=== PATIENT | female | born 1995 | race American Indian/Alaskan Native ===

== ENCOUNTER 2020-02-27 10:14 | Emergency (ER) | payer BC ==
--- NOTE | 2020-02-27 11:30 | Emergency Department Report ---
HPI - General Chief Complaint: Psych Time Seen by Provider: 02/27/20 11:02 - HPI HPI: This is a 25-year-old -Turk[place] female who was brought into the emergency department by PD for a medical and mental health evaluation. The patient was found by PD in the [facility] covered in mud. Patient says that she has been living out in the [facility] since last Thursday, 3 days ago. When asked why, the patient says that she has been let down by friends and family, is without any support, and says "maybe they have failed tests that I have given them and they have disappointed me." The patient says that she does have a room that she rents at some type of "room share" residence. 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 The patient later says that she decided to stay in the [facility] because the job was too far from home. She says that she was digging a hole in the ground, in which to sleep, to try and stay warm. There was also a van somewhere near the [place] and the street that the patient was trying to stand as well. She denies any medical conditions. She denies any hallucinations, suicidal or homicidal ideations. The patient is oriented to person, place, time and knows both the current president and the president elect. She denies any psychiatric history. ED Past Medical Hx - Medications Home Medications: Home Medications Medication Instructions Recorded Confirmed Last Taken Type Unobtainable 02/28/20 02/28/20 Unknown History ED Review of Systems ROS: Stated complaint: MEDICAL CLEARANCE/FOUND OUTSIDE Other details as noted in HPI Comment: All other systems reviewed and negative Constitutional: denies: chills, fever Eyes: denies: eye pain, vision change ENT: denies: ear pain, throat pain Respiratory: denies: cough, shortness of breath Cardiovascular: denies: chest pain, palpitations Gastrointestinal: denies: abdominal pain, vomiting Musculoskeletal: denies: back pain, arthralgia Skin: denies: rash, lesions Neurological: denies: headache, weakness Psychiatric: denies: auditory hallucinations, visual hallucinations, homicidal thoughts, suicidal thoughts Physical Exam - Physical Exam Physical Exam: GENERAL: The patient is well-developed well-nourished. HENT: Normocephalic. Atraumatic. Patient has moist mucous membranes. EYES: Extraocular motions are intact. NECK: Supple. Trachea is midline. CHEST/LUNGS: Clear to auscultation. There is no respiratory distress noted. HEART/CARDIOVASCULAR: Regular. There is no tachycardia. ABDOMEN: Abdomen is soft, nontender. Patient has normal bowel sounds. There is no abdominal distention. SKIN: Skin is warm and dry. NEURO: The patient is awake, alert, and oriented. The patient is cooperative. Normal speech. MUSCULOSKELETAL: There is no tenderness or deformity. There is no limitation range of motion. ED Course - Reevaluation(s) Reevaluation #1: 02/27/20 19:04 Lab Results 02/27/20 02/27/20 02/27/20 Range/Units 11:36 11:36 11:36 WBC 12.7 H (4.5-11.0) K/mm3 RBC 4.96 (3.65-5.03) M/mm3 Hgb 12.0 (10.1-14.3) gm/dl Hct 37.3 (30.3-42.9) % MCV 75 L (79-97) fl MCH 24 L (28-32) pg MCHC 32 (30-34) % RDW 16.9 H (13.2-15.2) % Plt Count 228 (140-440) K/mm3 Lymph % (Auto) 9.4 L (13.4-35.0) % [place] % (Auto) 5.1 (0.0-7.3) % Eos % (Auto) 0.0 (0.0-4.3) % Baso % (Auto) 0.2 (0.0-1.8) % Lymph # (Auto) 1.2 (1.2-5.4) K/mm3 [place] # (Auto) 0.7 (0.0-0.8) K/mm3 Eos # (Auto) 0.0 (0.0-0.4) K/mm3 Baso # (Auto) 0.0 (0.0-0.1) K/mm3 Seg Neutrophils % 85.3 H (40.0-70.0) % Seg Neutrophils # 10.8 H (1.8-7.7) K/mm3 Sodium 135 L (137-145) mmol/L Potassium 4.6 (3.6-5.0) mmol/L Chloride 99.8 (98-107) mmol/L Carbon Dioxide 24 (22-30) mmol/L Anion Gap 16 mmol/L BUN 14 (7-17) mg/dL Creatinine 0.6 (0.6-1.2) mg/dL Estimated GFR > 60 ml/min BUN/Creatinine Ratio 23 % Glucose 72 (65-100) mg/dL Calcium 9.7 (8.4-10.2) mg/dL Total Bilirubin 1.20 (0.1-1.2) mg/dL AST 410 H (5-40) units/L ALT 102 H (7-56) units/L Alkaline Phosphatase 45 (35-129) units/L Total Protein 7.4 (6.3-8.2) g/dL Albumin 4.2 (3.9-5) g/dL Albumin/Globulin Ratio 1.3 % TSH 0.231 L (0.270-4.200) mlU/mL HCG, Qual (Negative) Urine Color (Yellow) Urine Turbidity (Clear) Urine pH (5.0-7.0) Ur Specific [place] (1.003-1.030) Urine Protein (Negative) mg/dL Urine Glucose (UA) (Negative) mg/dL Urine Ketones (Negative) mg/dL Urine Blood (Negative) Urine Nitrite (Negative) Urine Bilirubin (Negative) Urine Urobilinogen (<2.0) mg/dL Ur Leukocyte Esterase (Negative) Urine WBC (Auto) (0.0-6.0) /HPF Urine RBC (Auto) (0.0-6.0) /HPF U Epithel Cells (Auto) (0-13.0) /HPF Urine Bacteria (Auto) (Negative) /HPF Urine Mucus /HPF Urine Opiates Screen Urine Methadone Screen Ur Barbiturates Screen Ur Phencyclidine Scrn Ur Amphetamines Screen U Benzodiazepines Scrn Urine Cocaine Screen U Marijuana (THC) Screen Drugs of Abuse Note Plasma/Serum Alcohol (0-0.07) % 02/27/20 02/27/20 02/27/20 Range/Units 11:36 11:36 17:17 WBC (4.5-11.0) K/mm3 RBC (3.65-5.03) M/mm3 Hgb (10.1-14.3) gm/dl Hct (30.3-42.9) % MCV (79-97) fl MCH (28-32) pg MCHC (30-34) % RDW (13.2-15.2) % Plt Count (140-440) K/mm3 Lymph % (Auto) (13.4-35.0) % [place] % (Auto) (0.0-7.3) % Eos % (Auto) (0.0-4.3) % Baso % (Auto) (0.0-1.8) % Lymph # (Auto) (1.2-5.4) K/mm3 [place] # (Auto) (0.0-0.8) K/mm3 Eos # (Auto) (0.0-0.4) K/mm3 Baso # (Auto) (0.0-0.1) K/mm3 Seg Neutrophils % (40.0-70.0) % Seg Neutrophils # (1.8-7.7) K/mm3 Sodium (137-145) mmol/L Potassium (3.6-5.0) mmol/L Chloride (98-107) mmol/L Carbon Dioxide (22-30) mmol/L Anion Gap mmol/L BUN (7-17) mg/dL Creatinine (0.6-1.2) mg/dL Estimated GFR ml/min BUN/Creatinine Ratio % Glucose (65-100) mg/dL Calcium (8.4-10.2) mg/dL Total Bilirubin (0.1-1.2) mg/dL AST (5-40) units/L ALT (7-56) units/L Alkaline Phosphatase (35-129) units/L Total Protein (6.3-8.2) g/dL Albumin (3.9-5) g/dL Albumin/Globulin Ratio % TSH (0.270-4.200) mlU/mL HCG, Qual Negative (Negative) Urine Color Yellow (Yellow) Urine Turbidity Clear (Clear) Urine pH 6.0 (5.0-7.0) Ur Specific [place] 1.021 (1.003-1.030) Urine Protein 30 mg/dl (Negative) mg/dL Urine Glucose (UA) Neg (Negative) mg/dL Urine Ketones 20 (Negative) mg/dL Urine Blood Lg (Negative) Urine Nitrite Neg (Negative) Urine Bilirubin Neg (Negative) Urine Urobilinogen < 2.0 (<2.0) mg/dL Ur Leukocyte Esterase Neg (Negative) Urine WBC (Auto) 1.0 (0.0-6.0) /HPF Urine RBC (Auto) 93.0 (0.0-6.0) /HPF U Epithel Cells (Auto) 1.0 (0-13.0) /HPF Urine Bacteria (Auto) 1+ (Negative) /HPF Urine Mucus Few /HPF Urine Opiates Screen Urine Methadone Screen Ur Barbiturates Screen Ur Phencyclidine Scrn Ur Amphetamines Screen U Benzodiazepines Scrn Urine Cocaine Screen U Marijuana (THC) Screen Drugs of Abuse Note Plasma/Serum Alcohol < 0.01 (0-0.07) % 02/27/20 Range/Units 17:17 WBC (4.5-11.0) K/mm3 RBC (3.65-5.03) M/mm3 Hgb (10.1-14.3) gm/dl Hct (30.3-42.9) % MCV (79-97) fl MCH (28-32) pg MCHC (30-34) % RDW (13.2-15.2) % Plt Count (140-440) K/mm3 Lymph % (Auto) (13.4-35.0) % [place] % (Auto) (0.0-7.3) % Eos % (Auto) (0.0-4.3) % Baso % (Auto) (0.0-1.8) % Lymph # (Auto) (1.2-5.4) K/mm3 [place] # (Auto) (0.0-0.8) K/mm3 Eos # (Auto) (0.0-0.4) K/mm3 Baso # (Auto) (0.0-0.1) K/mm3 Seg Neutrophils % (40.0-70.0) % Seg Neutrophils # (1.8-7.7) K/mm3 Sodium (137-145) mmol/L Potassium (3.6-5.0) mmol/L Chloride (98-107) mmol/L Carbon Dioxide (22-30) mmol/L Anion Gap mmol/L BUN (7-17) mg/dL Creatinine (0.6-1.2) mg/dL Estimated GFR ml/min BUN/Creatinine Ratio % Glucose (65-100) mg/dL Calcium (8.4-10.2) mg/dL Total Bilirubin (0.1-1.2) mg/dL AST (5-40) units/L ALT (7-56) units/L Alkaline Phosphatase (35-129) units/L Total Protein (6.3-8.2) g/dL Albumin (3.9-5) g/dL Albumin/Globulin Ratio % TSH (0.270-4.200) mlU/mL HCG, Qual (Negative) Urine Color (Yellow) Urine Turbidity (Clear) Urine pH (5.0-7.0) Ur Specific [place] (1.003-1.030) Urine Protein (Negative) mg/dL Urine Glucose (UA) (Negative) mg/dL Urine Ketones (Negative) mg/dL Urine Blood (Negative) Urine Nitrite (Negative) Urine Bilirubin (Negative) Urine Urobilinogen (<2.0) mg/dL Ur Leukocyte Esterase (Negative) Urine WBC (Auto) (0.0-6.0) /HPF Urine RBC (Auto) (0.0-6.0) /HPF U Epithel Cells (Auto) (0-13.0) /HPF Urine Bacteria (Auto) (Negative) /HPF Urine Mucus /HPF Urine Opiates Screen Presumptive negative Urine Methadone Screen Presumptive negative Ur Barbiturates Screen Presumptive negative Ur Phencyclidine Scrn Presumptive negative Ur Amphetamines Screen Presumptive negative U Benzodiazepines Scrn Presumptive negative Urine Cocaine Screen Presumptive negative U Marijuana (THC) Screen Presumptive positive Drugs of Abuse Note Disclamer Plasma/Serum Alcohol (0-0.07) % ED Medical Decision Making - Lab Data Result diagrams: 02/27/20 11:36 02/27/20 11:36 - Medical Decision Making This patient presents to the emergency department after being found disheveled in the [facility] by PD. Between myself, triage, and the psychiatric broaching machine set up operator, the patient gives multiple reasons as to why she was in the [facility]. At the time of my examination she is awake, alert, oriented, AAO x3. The patient's labs show some transaminitis and urine drug screen is positive for marijuana. The AST is much more elevated than the ALT which is sometimes consistent with history of alcohol use/abuse. The patient does admit that she was a heavy drinker in the past but denies any recent alcohol use. She also denies any abdominal pain at this time. She does not appear jaundiced. The transaminitis is something that the patient can follow-up with outpatient with gastroenterology. The patient should avoid any acetaminophen or alcohol use. Outpatient referrals for gastroenterology will be given. Vital signs have been reassuring throughout her ED course including being afebrile. The patient has been seen by the psychiatric assessment team. They are waiting for the UDS/UA to make any final decisions on the patient's disposition. These results have since come back and we are awaiting reevaluation by the psychiatric assessment team for further disposition. The patient is not suicidal or homicidal and does not have any expressed hallucinations. The patient has exhibited some unusual behavior regarding her choice to stay in the [place] over the weekend. Also, the patient has been giving some conflicting and/or confusing stories about her residence, family life and/or support, current job status, etc. If the decision is made by the psychiatric team that the patient requires inpatient stabilization, I would consider this patient medically cleared. Critical care attestation.: If time is entered above; I have spent that time in minutes in the direct care of this critically ill patient, excluding procedure time. ED Disposition Clinical Impression: Medical clearance for psychiatric admission, Transaminitis Disposition: [id number] TO HOME OR SELFCARE Is pt being admited?: No Condition: Stable Additional Instructions: I have given you a referral for [facility] to follow-up regarding the elevated liver enzymes found on your blood work. Please avoid any acetaminophen/Tylenol use. Please avoid any alcohol use/abuse. Referrals: [facility] [Provider Group] - 3-5 Days PRIMARY CARE, [Primary Care Provider] - 3-5 Days [facility] [Outside] - 3-5 Days
[2020-02-27 12:07] LABS: Basophils % (Auto) 0.2 % (0.0-1.8); Hematocrit 37.3 % (30.3-42.9); Lymphocytes # (Auto) 1.2 K/mm3 (1.2-5.4); Lymphocytes % (Auto) 9.4 % (13.4-35.0); Mean Corpuscular HGB Conc 32 % (30-34); Mean Corpuscular Volume 75 fl (79-97); Monocytes # (Auto) 0.7 K/mm3 (0.0-0.8); Monocytes % (Auto) 5.1 % (0.0-7.3); Platelet Count 228 K/mm3 (140-440); Red Blood Count 4.96 M/mm3 (3.65-5.03); Red Cell Distribution Width 16.9 % (13.2-15.2)
[2020-02-27 12:29] LABS: Alanine Aminotransferase 102 units/L (7-56); Albumin 4.2 g/dL (3.9-5); Blood Urea Nitrogen 14 mg/dL (7-17); Calcium 9.7 mg/dL (8.4-10.2); Hemolysis Index 1
[2020-02-27 12:34] LABS: BUN/Creatinine Ratio 23
[2020-02-27 17:44] LABS: Bacteria,Urine 1+ /HPF (Negative); Bilirubin,Urine NEG (Negative); Blood,Urine LG (Negative); Color,Urine Yellow (Yellow); Mucus,Urine FEW /HPF; Urobilinogen,Urine < 2.0 mg/dL (<2.0)
[2020-02-27 17:48] LABS: Amphetamine Screen,Urine PRESUMPTIVE NEGATIVE; Benzodiazepines Screen,Urine PRESUMPTIVE NEGATIVE; Cannabinoid Screen,Urine PRESUMPTIVE POSITIVE; Cocaine Screen,Urine PRESUMPTIVE NEGATIVE; Methadone Screen,Urine PRESUMPTIVE NEGATIVE; Opiate Screen,Urine PRESUMPTIVE NEGATIVE
--- NOTE | 2020-02-28 08:21 | Consultation ---
History of Present Illness - Reason for Consult Consult date: 02/28/20 Reason for consult: MHE Requesting physician: HALLIE JACOBSON - History of Present Psychiatric Illness Per ED provider: This is a 25-year-old -[place]une[place] female who was brought into the emergency department by PD for a medical and mental health evaluation. The patient was found by PD in the [place] in mud. Patient says that she has been living out in the [place] since last Thursday, 3 days ago. When asked why, the patient says that she has been let down by friends and family, is without any support, and says "maybe they have failed tests that I have given them and they have disappointed me." The patient says that she does have a room that she rents at some type of "room share" residence. 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 The patient later says that she decided to stay in the [place] because the job was too far from home. She says that she was digging a hole in the ground, in which to sleep, to try and stay warm. There was also a van somewhere near the [place] and the street that the patient was trying to stand as well. She denies any medical conditions. She denies any hallucinations, suicidal or homicidal ideations. The patient is oriented to person, place, time and knows both the current president and the president elect. She denies any psychiatric history. PSYCH HPI Patient is a single 25-year-old -[place]uneian female with unspecified past psychiatric history was brought to the ER for mental health evaluation after being found by the police department. Attempt was made to interview patient this morning I introduced myself, currently lives in room patient says she would like to have the lights off, and the left alone that she does not want me to bother her. Patient is not displaying any aggressive or psychotic behavior at this time and has the right decline mental health evaluation. For this consult patient will be signed off and referred to case management. PAST PSYCHIATRIC HISTORY Diagnoses: Unknown Suicide attempts or Self-harm behavior: Unknown Prior psychiatric hospitalizations: Unknown Substance Abuse history: Unknown Previous psychiatric medications tried: Unknown Outpatient treatment: Unknown PAST MEDICAL HISTORY: Unknown Family Psychiatric History: None reported or documented SOCIAL HISTORY Marital Status: Unknown Living Arrangements: Unknown Employment Status: Unknown: Education:UnknownUnknown History of Abuse: Un known Legal History:Unknown REVIEW OF SYSTEMS ROS cannot be reliably obtained from the patient due to her refusal MENTAL STATUS EXAMINATION General Appearance and Behavior: Age appropriate, good hygiene, wearing appropriate clothes, good eye contact, uncooperative with questioning. Cooperation: Withdrawn Psychomotor Behavior: unremarkable and within normal limits Mood: good Affect and affective range: Flat Thought Process: N/A Thought Content: N/A Speech: Normal volume, Regular rate and rhythm Intellectual Functioning: N/A Suicidal Ideation: N/A l Homicidal Ideation: N/A Impulse Control: Impaired Insight and Judgment: Impaired Memory: N/A Attention: Normal, Orientation: Alert Diagnoses: Assessment and Plan - Psychiatric problem (1) Behavior concern in adult Current Visit: Yes Status: Acute Treatment Plan Patient refused to participate initial evaluation, and the time of evaluation patient does not display any psychotic or manic-like behavior. Patient requested to have the lights in the room turned off, eat her food and cover up. Which are reasonable request. MEDICATIONS: Risks, benefits and alternatives of medications discussed with the patient, questions answered and consent obtained from patient. PSYCHOTHERAPY: Supportive psychotherapy provided MEDICAL: Per primary team DELIRIUM PRECAUTIONS: Please re-orient patient frequently, keep lights on during the day, and minimize benzodiazepines and opiates as these medications could worsen patient's confusion. LATHER APPRENTICE: DISPOSITION: Do Not Recommend acute inpatient psychiatric hospitalization at this time. refer to case management LEGAL STATUS: 1013 rescinded FOLLOW-UP: Will sign off Thank you for the consult. Please contact with any questions and/or concerns. Medications and Allergies Allergies Allergy/AdvReac Type Severity Reaction Status Date / Time No Known Allergies Allergy Unverified 02/27/20 14:32 Mental Status Exam - Vital signs Last Vital Signs Temp 98.9 F 02/28/20 02:01 Pulse 96 H 02/28/20 02:01 Resp 18 02/28/20 02:01 BP 99/60 02/28/20 02:01 Pulse Ox 100 02/28/20 02:01 Results Result Diagrams: 02/27/20 11:36 02/27/20 11:36 Abnormal lab results 02/27/20 02/27/20 02/27/20 Range/Units 11:36 11:36 11:36 WBC 12.7 H (4.5-11.0) K/mm3 MCV 75 L (79-97) fl MCH 24 L (28-32) pg RDW 16.9 H (13.2-15.2) % Lymph % (Auto) 9.4 L (13.4-35.0) % Seg Neutrophils % 85.3 H (40.0-70.0) % Seg Neutrophils # 10.8 H (1.8-7.7) K/mm3 Sodium 135 L (137-145) mmol/L AST 410 H (5-40) units/L ALT 102 H (7-56) units/L TSH 0.231 L (0.270-4.200) mlU/mL All other labs normal. Assessment and Plan - Psychiatric problem (1) Behavior concern in adult Current Visit: Yes Status: Acute
[2020-02-28] MEDS ORDERED: ZIPRASIDONE MESYLATE 20 MG VIAL IM ONE (09:50)
[2020-02-28] MEDS ORDERED: LORazepam 2 MG/ML VIAL IM ONE (09:50)
[2020-02-28] MEDS ORDERED: WATER FOR INJ Sterile (PF) 10 ML ONE (09:53)
--- NOTE | 2020-02-29 14:23 | Emergency Department Report ---
Blank Doc - Documentation Documentation: I was asked by nurse MATT Hill to discharge patient. Per nurse, patient was seen and evaluated by psychiatry, who signed off on patient and ordered a case management consult for discharge home. Liz now tells me that patient's sister is here to take her home. In reading the initial physician's note, I see the patient was brought here by PD after being found in the [place], covered in mud. Patient had no SI or HI, however due to her decision to take residence in the [facility], physician ordered a mental health assessment. Patient was seen by psychiatry ADVISORY APPLICATION DEVELOPER. Note states that patient did not want to speak with him, had covers over her head, and asked him to turn the light off. ADVISORY APPLICATION DEVELOPER states that on yesterday when he saw the patient, there were no phone numbers available for patient's family so that he could gain collateral info. From this interaction, it was deemed by the ADVISORY APPLICATION DEVELOPER that patient had no acute psychosis and that the 1013 could be rescinded and that she could be discharged home with family, which is why the case management consult was ordered by him. According to Liz, this morning patient was placed in seclusion room after patient had an inappropriate interaction with the psychiatry ADVISORY APPLICATION DEVELOPER. Following this interaction Liz asked him if he wanted patient placed in seclusion, which he did. So, patient is currently in room 15. I went to talk to her and patient reports that she is having some auditory hallucinations. She states the voices are telling her to go home. I asked patient where her home is, she keeps repeating "where is my home?" Patient appears disorganized. Her sister is here to pick her up currently. Sister has interacted with patient and states that this is not the patient's baseline. The last time she saw her sister was 2 weeks ago when she told her she had to leave her house due to her marijuana use and having other people in her home. Sister does not feel comfortable taking her back to her home in this state. We will not discharge patient at this time. Since patient did not have a thorough psychiatry consult on yesterday, will reorder psych consult so that she can be seen again tomorrow and fully assessed since we now have phone numbers of patients family members.
--- NOTE | 2020-02-29 16:05 | Emergency Department Report ---
Blank Doc - Documentation Documentation: Medical records reviewed, patient discussed with PA and Nursing Staff. Patient presents with acute onset psychosis, reportedly was in the [place] disorganized, dishevelled and trying to elope from the ED. WBC is elevated. No CT, UDS is negative Family reports this is not her baseline and no psych history Impression: Acute psychosis Vs Acute delirium due to unknown etiology Recommendation: Please refer to inpatient psychiatry once medically cleared.
[2020-02-29 22:39] LABS: Hematocrit 32.1 % (30.3-42.9); Hemoglobin 10.6 gm/dl (10.1-14.3); Mean Corpuscular HGB Conc 33 % (30-34); Mean Corpuscular Volume 74 fl (79-97); Platelet Count 195 K/mm3 (140-440); Red Blood Count 4.32 M/mm3 (3.65-5.03); Red Cell Distribution Width 16.9 % (13.2-15.2)
[2020-03-01 09:01] LABS: INR 1.01 (0.87-1.13)
[2020-03-01 09:02] LABS: Partial Thromboplastin Time 29.2 Sec. (24.2-36.6)
[2020-03-01 09:16] LABS: Alanine Aminotransferase 69 units/L (7-56); Albumin 4.2 g/dL (3.9-5); Blood Urea Nitrogen 9 mg/dL (7-17); Calcium 9.8 mg/dL (8.4-10.2); Hemolysis Index 1
[2020-03-01 09:26] LABS: BUN/Creatinine Ratio 13
--- NOTE | 2020-03-01 09:52 | Cat Scan Report ---
CT HEAD WITHOUT CONTRAST INDICATION / CLINICAL INFORMATION: change in men nikky status. TECHNIQUE: All CT scans at this location are performed using CT dose reduction for ALARA by means of automated e xposure control. COMPARISON: None available. FINDINGS: HEMORRHAGE: No evidence of intracranial hemorrhage or extra-axial fluid collection. EXTRA-AXIAL SPACES: Cortical sulci, sylvian fissures and basilar cisterns have an unremarkable appear ance. VENTRICULAR SYSTEM: The third and lateral ventricles are of normal size and configuration. CEREBRAL PARENCHYMA: No areas of abnormal brain parenchymal attenuation are identified. There is no i ndication of recent infarction. MIDLINE SHIFT OR HERNIATION: There is no mass effect. CEREBELLUM / BRAINSTEM: Brainstem and cerebellum have an unremarkable appearance. MIDLINE STRUCTURES:No abnormalities of the pituitary gland or pineal region are identified. INTRACRANIAL VESSELS:No abnormalities are identified on this noncontrast head CT. ORBITS: visualized portions of the orbits have an unremarkable appearance. SOFT TISSUES of HEAD: No significant abnormality. CALVARIUM: Evaluation of bone windows reveals no abnormalities. PARANASAL SINUSES / MASTOID AIR CELLS: Visualized portions of the paranasal sinuses are free from inf lammatory mucosal disease. Mastoid air cells are normally pneumatized. IMPRESSION: 1. Normal head CT without contrast. Signer Name: Gil Abraham MD Signed: 03/01/2020 9:48 AM Workstation Name: [id number]
[2020-03-01] MEDS ORDERED: LACTATED RINGERS 2,000 ML IV ONE (10:00)
--- NOTE | 2020-03-01 10:11 | Event Note ---
Date: 03/01/20 The patient was evaluated in the emergency department for symptoms described in the history of present illness. He/she was evaluated in the context of the global COVID-19 pandemic, which necessitated consideration that the patient might be at risk for infection with the virus that causes COVID-19. Institutional protocols and algorithms that pertain to the evaluation of patients at risk for COVID-19 are in a state of rapid change based on information released by regulatory bodies including the CDC and federal and state organizations. These policies and algorithms were followed during the patient's care in the emergency department. Please note that these policies, procedures and recommendations changed on a rapid basis. Please note that this patient was not signed out to myself. I was not aware of this patient's care until today, or nursing team brought this patient to my attention. During the history and physical, I am chaperoned by nurse ADRIANA RDZ This is a patient who came in a few days ago with psychosis and disorganized behavior. She was cleared medically by her initial physician, Dr. Rasheed. She was seen by psychiatry team, who made initial recommendations, and then a repeat psychiatric consultation was requested by my colleague, Dr. Junior. Psychiatry then reevaluated the patient, and made further recommendations, which were not communicated to the medical team as far as I am aware. They recommended a CT scan of the brain. I reviewed the patient's chart, and laboratory studies. I went back to reevaluate the patient. The patient is currently alert, oriented, and clinically sober at this time. She denies physical pain at this time. She is not homicidal, not suicidal, and in my opinion, demonstrates a lucid thought process. The patient tells me that she recently moved here from [place]. 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 She states that a few days ago, she went to a alliance party with individuals that she notices socially, and felt uncomfortable. She states that she then escaped this event by going to the [facility], where she felt comfortable. She also endorses that she was consuming recreational marijuana. The patient states that while in [place], cannabis consumption was illegal. She knows that marijuana consumption is not legal here in the state of [place]. She indicates that she is going to discontinue marijuana consumption. On her exam, patient alert and oriented to name, place, location, month. She is able to add 4+4, subtract 100-7, multiply 5 by 5, and remember 3 out of 3 words at 0 minutes and 5 minutes. She exhibits decision-making capacity in my opinion. I did recommend IV fluids for her elevated CK, and the patient asked if she could drink water instead as an alternative as she prefers not to have an IV placed. The patient states that she is reliable to drink water. Her physical exam is benign and unremarkable, with soft muscular compartments. Transaminitis improving, she is not clinically encephalopathic at this time, and initial transaminitis is likely secondary to presumably elevated CK. She has normal renal function at this time. In addition, liver function tests are improving. CT scan of the brain is negative for acute findings. EKG is unremarkable. In my opinion, patient does not have an emergent medical condition at this time which would require inpatient hospitalization or further management. From a medical management standpoint, it is my opinion that at this patient is suitable for discharge with copious oral hydration, instructions to follow-up with an outpatient primary care doctor for repeat CK/liver function tests in 5 to 7 days. Patient is also counseled to abstain from cannabis consumption. In addition, at this point time, it is my opinion that the patient does not have an immediate medical contraindication that would preclude psychiatric evaluation, consultation, and if the psychiatry team ultimately deems the patient still requires 1013/involuntary confinement/involuntary hold, placement to psychiatric facility. However, I am requesting a repeat psychiatric evaluation to determine if patient still requires involuntary psychiatric placement at this time Suspect that the patient has a temporary drug-induced psychosis, now resolved. Suspect that elevated CK secondary to cannabis consumption. Suspect that transaminitis secondary to elevated CK. Noncontrast CT scan of the brain is negative for acute findings. EKG: Sinus rhythm, 72 bpm, normal axis, normal intervals, high left ventricular voltage. EKG is not a STEMI. Physical exam: Head, normocephalic atraumatic Vital signs reviewed and appreciated. Ocular exam: EOM intact, no obvious droop or ptosis. Neck: Supple, with no meningeal signs. No stridor. Trachea is midline. S1, S2, regular rate and rhythm. Breath sounds clear to auscultation bilaterally. Abdomen soft and benign, without rebound, guarding or peritoneal signs. There is no midline spinal tenderness or step-offs. There is no back tenderness. 2+ pulses noted in the bilateral upper and lower extremities. There is no palpable cord. negative Homans sign. Muscular compartments are soft. The pelvis is stable. No facial droop. Tongue midline. Extraocular movements intact bilaterally. Facial sensation intact to light touch in V1, V2, V3 distribution bilaterally. 5 and a 5 strength in 4 extremities. Sensation intact to light touch in 4 extr emities. Lab Results 02/27/20 02/27/20 02/27/20 Range/Units 11:36 11:36 11:36 WBC 12.7 H (4.5-11.0) K/mm3 RBC 4.96 (3.65-5.03) M/mm3 Hgb 12.0 (10.1-14.3) gm/dl Hct 37.3 (30.3-42.9) % MCV 75 L (79-97) fl MCH 24 L (28-32) pg MCHC 32 (30-34) % RDW 16.9 H (13.2-15.2) % Plt Count 228 (140-440) K/mm3 Lymph % (Auto) 9.4 L (13.4-35.0) % Mcmullen % (Auto) 5.1 (0.0-7.3) % Eos % (Auto) 0.0 (0.0-4.3) % Baso % (Auto) 0.2 (0.0-1.8) % Lymph # (Auto) 1.2 (1.2-5.4) K/mm3 Mcmullen # (Auto) 0.7 (0.0-0.8) K/mm3 Eos # (Auto) 0.0 (0.0-0.4) K/mm3 Baso # (Auto) 0.0 (0.0-0.1) K/mm3 Seg Neutrophils % 85.3 H (40.0-70.0) % Seg Neutrophils # 10.8 H (1.8-7.7) K/mm3 PT (12.2-14.9) Sec. INR (0.87-1.13) APTT (24.2-36.6) Sec. Sodium 135 L (137-145) mmol/L Potassium 4.6 (3.6-5.0) mmol/L Chloride 99.8 (98-107) mmol/L Carbon Dioxide 24 (22-30) mmol/L Anion Gap 16 mmol/L BUN 14 (7-17) mg/dL Creatinine 0.6 (0.6-1.2) mg/dL Estimated GFR > 60 ml/min BUN/Creatinine Ratio 23 % Glucose 72 (65-100) mg/dL Calcium 9.7 (8.4-10.2) mg/dL Magnesium (1.7-2.3) mg/dL Total Bilirubin 1.20 (0.1-1.2) mg/dL AST 410 H (5-40) units/L ALT 102 H (7-56) units/L Alkaline Phosphatase 45 (35-129) units/L Total Creatine Kinase (30-135) units/L Total Protein 7.4 (6.3-8.2) g/dL Albumin 4.2 (3.9-5) g/dL Albumin/Globulin Ratio 1.3 % TSH 0.231 L (0.270-4.200) mlU/mL HCG, Qual (Negative) Urine Color (Yellow) Urine Turbidity (Clear) Urine pH (5.0-7.0) Ur Specific [place] (1.003-1.030) Urine Protein (Negative) mg/dL Urine Glucose (UA) (Negative) mg/dL Urine Ketones (Negative) mg/dL Urine Blood (Negative) Urine Nitrite (Negative) Urine Bilirubin (Negative) Urine Urobilinogen (<2.0) mg/dL Ur Leukocyte Esterase (Negative) Urine WBC (Auto) (0.0-6.0) /HPF Urine RBC (Auto) (0.0-6.0) /HPF U Epithel Cells (Auto) (0-13.0) /HPF Urine Bacteria (Auto) (Negative) /HPF Urine Mucus /HPF Salicylates (2.8-20.0) mg/dL Urine Opiates Screen Urine Methadone Screen Acetaminophen (10.0-30.0) ug/mL Ur Barbiturates Screen Ur Phencyclidine Scrn Ur Amphetamines Screen U Benzodiazepines Scrn Urine Cocaine Screen U Marijuana (THC) Screen Drugs of Abuse Note Plasma/Serum Alcohol (0-0.07) % 02/27/20 02/27/20 02/27/20 Range/Units 11:36 11:36 17:17 WBC (4.5-11.0) K/mm3 RBC (3.65-5.03) M/mm3 Hgb (10.1-14.3) gm/dl Hct (30.3-42.9) % MCV (79-97) fl MCH (28-32) pg MCHC (30-34) % RDW (13.2-15.2) % Plt Count (140-440) K/mm3 Lymph % (Auto) (13.4-35.0) % Mcmullen % (Auto) (0.0-7.3) % Eos % (Auto) (0.0-4.3) % Baso % (Auto) (0.0-1.8) % Lymph # (Auto) (1.2-5.4) K/mm3 Mcmullen # (Auto) (0.0-0.8) K/mm3 Eos # (Auto) (0.0-0.4) K/mm3 Baso # (Auto) (0.0-0.1) K/mm3 Seg Neutrophils % (40.0-70.0) % Seg Neutrophils # (1.8-7.7) K/mm3 PT (12.2-14.9) Sec. INR (0.87-1.13) APTT (24.2-36.6) Sec. Sodium (137-145) mmol/L Potassium (3.6-5.0) mmol/L Chloride (98-107) mmol/L Carbon Dioxide (22-30) mmol/L Anion Gap mmol/L BUN (7-17) mg/dL Creatinine (0.6-1.2) mg/dL Estimated GFR ml/min BUN/Creatinine Ratio % Glucose (65-100) mg/dL Calcium (8.4-10.2) mg/dL Magnesium (1.7-2.3) mg/dL Total Bilirubin (0.1-1.2) mg/dL AST (5-40) units/L ALT (7-56) units/L Alkaline Phosphatase (35-129) units/L Total Creatine Kinase (30-135) units/L Total Protein (6.3-8.2) g/dL Albumin (3.9-5) g/dL Albumin/Globulin Ratio % TSH (0.270-4.200) mlU/mL HCG, Qual Negative (Negative) Urine Color Yellow (Yellow) Urine Turbidity Clear (Clear) Urine pH 6.0 (5.0-7.0) Ur Specific [place] 1.021 (1.003-1.030) Urine Protein 30 mg/dl (Negative) mg/dL Urine Glucose (UA) Neg (Negative) mg/dL Urine Ketones 20 (Negative) mg/dL Urine Blood Lg (Negative) Urine Nitrite Neg (Negative) Urine Bilirubin Neg (Negative) Urine Urobilinogen < 2.0 (<2.0) mg/dL Ur Leukocyte Esterase Neg (Negative) Urine WBC (Auto) 1.0 (0.0-6.0) /HPF Urine RBC (Auto) 93.0 (0.0-6.0) /HPF U Epithel Cells (Auto) 1.0 (0-13.0) /HPF Urine Bacteria (Auto) 1+ (Negative) /HPF Urine Mucus Few /HPF Salicylates (2.8-20.0) mg/dL Urine Opiates Screen Urine Methadone Screen Acetaminophen (10.0-30.0) ug/mL Ur Barbiturates Screen Ur Phencyclidine Scrn Ur Amphetamines Screen U Benzodiazepines Scrn Urine Cocaine Screen U Marijuana (THC) Screen Drugs of Abuse Note Plasma/Serum Alcohol < 0.01 (0-0.07) % 02/27/20 02/29/20 03/01/20 Range/Units 17:17 21:49 08:33 WBC 5.5 (4.5-11.0) K/mm3 RBC 4.32 (3.65-5.03) M/mm3 Hgb 10.6 (10.1-14.3) gm/dl Hct 32.1 (30.3-42.9) % MCV 74 L (79-97) fl MCH 25 L (28-32) pg MCHC 33 (30-34) % RDW 16.9 H (13.2-15.2) % Plt Count 195 (140-440) K/mm3 Lymph % (Auto) (13.4-35.0) % Mcmullen % (Auto) (0.0-7.3) % Eos % (Auto) (0.0-4.3) % Baso % (Auto) (0.0-1.8) % Lymph # (Auto) (1.2-5.4) K/mm3 [place] # (Auto) (0.0-0.8) K/mm3 Eos # (Auto) (0.0-0.4) K/mm3 Baso # (Auto) (0.0-0.1) K/mm3 Seg Neutrophils % (40.0-70.0) % Seg Neutrophils # (1.8-7.7) K/mm3 PT (12.2-14.9) Sec. INR (0.87-1.13) APTT (24.2-36.6) Sec. Sodium 141 (137-145) mmol/L Potassium 3.5 L D (3.6-5.0) mmol/L Chloride 104.7 (98-107) mmol/L Carbon Dioxide 28 (22-30) mmol/L Anion Gap 12 mmol/L BUN 9 (7-17) mg/dL Creatinine 0.7 (0.6-1.2) mg/dL Estimated GFR > 60 ml/min BUN/Creatinine Ratio 13 % Glucose 128 H (65-100) mg/dL Calcium 9.8 (8.4-10.2) mg/dL Magnesium 2.00 (1.7-2.3) mg/dL Total Bilirubin 0.90 (0.1-1.2) mg/dL AST 104 H (5-40) units/L ALT 69 H (7-56) units/L Alkaline Phosphatase 39 (35-129) units/L Total Creatine Kinase 2648 H (30-135) units/L Total Protein 7.4 (6.3-8.2) g/dL Albumin 4.2 (3.9-5) g/dL Albumin/Globulin Ratio 1.3 % TSH (0.270-4.200) mlU/mL HCG, Qual (Negative) Urine Color (Yellow) Urine Turbidity (Clear) Urine pH (5.0-7.0) Ur Specific [place] (1.003-1.030) Urine Protein (Negative) mg/dL Urine Glucose (UA) (Negative) mg/dL Urine Ketones (Negative) mg/dL Urine Blood (Negative) Urine Nitrite (Negative) Urine Bilirubin (Negative) Urine Urobilinogen (<2.0) mg/dL Ur Leukocyte Esterase (Negative) Urine WBC (Auto) (0.0-6.0) /HPF Urine RBC (Auto) (0.0-6.0) /HPF U Epithel Cells (Auto) (0-13.0) /HPF Urine Bacteria (Auto) (Negative) /HPF Urine Mucus /HPF Salicylates (2.8-20.0) mg/dL Urine Opiates Screen Presumptive negative Urine Methadone Screen Presumptive negative Acetaminophen (10.0-30.0) ug/mL Ur Barbiturates Screen Presumptive negative Ur Phencyclidine Scrn Presumptive negative Ur Amphetamines Screen Presumptive negative U Benzodiazepines Scrn Presumptive negative Urine Cocaine Screen Presumptive negative U Marijuana (THC) Screen Presumptive positive Drugs of Abuse Note Disclamer Plasma/Serum Alcohol (0-0.07) % 03/01/20 03/01/20 03/01/20 Range/Units 08:33 08:33 08:33 WBC (4.5-11.0) K/mm3 RBC (3.65-5.03) M/mm3 Hgb (10.1-14.3) gm/dl Hct (30.3-42.9) % MCV (79-97) fl MCH (28-32) pg MCHC (30-34) % RDW (13.2-15.2) % Plt Count (140-440) K/mm3 Lymph % (Auto) (13.4-35.0) % Mcmullen % (Auto) (0.0-7.3) % Eos % (Auto) (0.0-4.3) % Baso % (Auto) (0.0-1.8) % Lymph # (Auto) (1.2-5.4) K/mm3 [place] # (Auto) (0.0-0.8) K/mm3 Eos # (Auto) (0.0-0.4) K/mm3 Baso # (Auto) (0.0-0.1) K/mm3 Seg Neutrophils % (40.0-70.0) % Seg Neutrophils # (1.8-7.7) K/mm3 PT 13.1 (12.2-14.9) Sec. INR 1.01 (0.87-1.13) APTT 29.2 (24.2-36.6) Sec. Sodium (137-145) mmol/L Potassium (3.6-5.0) mmol/L Chloride (98-107) mmol/L Carbon Dioxide (22-30) mmol/L Anion Gap mmol/L BUN (7-17) mg/dL Creatinine (0.6-1.2) mg/dL Estimated GFR ml/min BUN/Creatinine Ratio % Glucose (65-100) mg/dL Calcium (8.4-10.2) mg/dL Magnesium (1.7-2.3) mg/dL Total Bilirubin (0.1-1.2) mg/dL AST (5-40) units/L ALT (7-56) units/L Alkaline Phosphatase (35-129) units/L Total Creatine Kinase (30-135) units/L Total Protein (6.3-8.2) g/dL Albumin (3.9-5) g/dL Albumin/Globulin Ratio % TSH (0.270-4.200) mlU/mL HCG, Qual (Negative) Urine Color (Yellow) Urine Turbidity (Clear) Urine pH (5.0-7.0) Ur Specific [place] (1.003-1.030) Urine Protein (Negative) mg/dL Urine Glucose (UA) (Negative) mg/dL Urine Ketones (Negative) mg/dL Urine Blood (Negative) Urine Nitrite (Negative) Urine Bilirubin (Negative) Urine Urobilinogen (<2.0) mg/dL Ur Leukocyte Esterase (Negative) Urine WBC (Auto) (0.0-6.0) /HPF Urine RBC (Auto) (0.0-6.0) /HPF U Epithel Cells (Auto) (0-13.0) /HPF Urine Bacteria (Auto) (Negative) /HPF Urine Mucus /HPF Salicylates < 0.3 L (2.8-20.0) mg/dL Urine Opiates Screen Urine Methadone Screen Acetaminophen 5.0 L (10.0-30.0) ug/mL Ur Barbiturates Screen Ur Phencyclidine Scrn Ur Amphetamines Screen U Benzodiazepines Scrn Urine Cocaine Screen U Marijuana (THC) Screen Drugs of Abuse Note Plasma/Serum Alcohol (0-0.07) % Vital Signs 02/27/20 02/27/20 02/27/20 11:38 11:40 12:00 Temperature Pulse Rate 54 L 55 L 53 L Respiratory 16 12 12 Rate Blood Pressure 121/69 Blood Pressure 121/69 [Left] O2 Sat by Pulse 100 100 100 Oximetry 02/27/20 02/27/20 02/27/20 12:13 12:46 13:00 Temperature 98.1 F Pulse Rate 53 L 77 Respiratory 12 15 Rate Blood Pressure 117/79 117/79 Blood Pressure [Left] O2 Sat by Pulse 100 100 Oximetry 02/27/20 02/27/20 02/27/20 13:16 13:30 13:46 Temperature Pulse Rate 75 75 76 Respiratory 15 22 14 Rate Blood Pressure 117/79 117/79 135/81 Blood Pressure [Left] O2 Sat by Pulse 100 100 100 Oximetry 02/27/20 02/27/20 02/27/20 14:00 14:16 14:30 Temperature Pulse Rate 74 60 105 H Respiratory 14 26 H 17 Rate Blood Pressure 135/81 135/81 135/81 Blood Pressure [Left] O2 Sat by Pulse 100 100 99 Oximetry 02/27/20 02/27/20 02/27/20 14:46 15:00 20:15 Temperature 99.4 F Pulse Rate 85 109 H 105 H Respiratory 16 19 18 Rate Blood Pressure 125/69 125/69 Blood Pressure 106/58 [Left] O2 Sat by Pulse 100 100 100 Oximetry 02/27/20 02/28/20 02/28/20 23:40 02:01 09:22 Temperature 98.9 F Pulse Rate 96 H Respiratory 18 18 18 Rate Blood Pressure Blood Pressure 99/60 [Left] O2 Sat by Pulse 98 100 98 Oximetry 02/28/20 02/28/20 02/29/20 14:02 19:44 02:38 Temperature 99.0 F 98.9 F Pulse Rate 82 99 H 96 H Respiratory 18 16 16 Rate Blood Pressure 110/69 Blood Pressure 125/69 112/68 [Left] O2 Sat by Pulse 100 100 100 Oximetry 02/29/20 02/29/20 03/01/20 09:49 19:50 01:20 Temperature 98.4 F 98.4 F 98.0 F Pulse Rate 100 H 66 60 Respiratory 16 18 18 Rate Blood Pressure Blood Pressure 148/100 140/86 138/81 [Left] O2 Sat by Pulse 100 100 99 Oximetry 03/01/20 09:13 Temperature 98.5 F Pulse Rate 66 Respiratory 19 Rate Blood Pressure Blood Pressure 150/89 [Left] O2 Sat by Pulse 100 Oximetry 03/01/2020 11: 40 1 AM Patient was reevaluated by the psychiatry team. They also agree the patient does not meet criteria for involuntary hold or psychiatric hold at this time. The patient exhibits decision-making capacity and ability to care for herself at this time. She states that she would like to be discharged. She will be instructed to refrain from cannabis consumption.
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
[2020-03-01 16:11] VITALS: BP 148/90
== END 2020-03-01 17:00 | disposition home or self-care (01) ==
LOC: EEVIPCON 10:14 → ED 10:14
DX: F15.24 Other stimulant dependence with stimulant-induced mood disorder (principal); Z79.899 Other long term (current) drug therapy
CPT/HCPCS: 36415; 70450; 80053; 80307; 81001; 82140; 82550; 82962; 83735; 84443; 84703; 85025; 85027; 85610; 85730; 93005; 96372; 99285; J2060; J3486; 80320; G0480